=== PATIENT | female | born 1955 | race Caucasian/White ===

== ENCOUNTER 2023-08-30 14:52 | Outpatient (OUT) | payer MEDICARE, OTHER, SELFPAY ==
[2023-08-30 16:21] LABS: Lactate Dehydrogenase 221 U/L (81-234)
[2023-08-31 04:07] LABS: AFP, Serum, Tumor Marker 2.1 ng/mL (0.0-9.2); CEA 0.7 ng/mL (0.0-4.7); Cancer Antigen (CA) 125 11.3 U/mL (0.0-38.1); HCG Tumor Marker 2 mIU/mL (.)
== END 2023-08-30 14:53 | disposition home or self-care (01) ==
LOC: LAB 14:57
PROVIDERS: PCP Internal Medicine; Visit Provider Obstetrics & Gynecology
DX: N83.299 Other ovarian cyst, unspecified side (principal)
CPT/HCPCS: 36415; 82105; 82378; 83615; 84702; 86304

== ENCOUNTER 2023-10-07 13:21 | Outpatient (OUT) | payer MEDICARE, OTHER, SELFPAY ==
--- NOTE | 2023-10-07 13:26 | ECG_ITS ---
[facility] Test Date: 2023-10-07 Pat Name: CIRO HAYNES Department: Room: - Gender: Female Customer Success Specialist: : [id number] Requested By: PANCHO ANGEL Order Number: [id number] Reading MD: INEZ RICE Measurements Intervals [place] Rate: 63 P: 68 HI: 176 QRS: 54 QRSD: 83 T: 62 QT: 384 QTc: 396 Interpretive Statements SINUS RHYTHM No previous ECG available for comparison Electronically Signed On 10-09-2023 7:34:05 EDT by INEZ RICE
== END 2023-10-07 13:22 | disposition home or self-care (01) ==
LOC: PST 13:23
PROVIDERS: PCP Internal Medicine; Visit Provider Obstetrics & Gynecology
DX: Z01.810 Encounter for preprocedural cardiovascular examination (principal); N83.299 Other ovarian cyst, unspecified side; R10.2 Pelvic and perineal pain
CPT/HCPCS: 93005

== ENCOUNTER 2023-10-21 07:20 | Day surgery (SDC) | payer MEDICARE, OTHER, SELFPAY ==
[2023-10-07 13:57] VITALS: BP 140/87; PULSE 83; TEMP 36.3; O2SAT 95; BMI 24.8
[2023-10-21] VITALS (11 sets, daily range): BP systolic 112–163; BP diastolic 58–102; PULSE 62–87; TEMP 35.9–36.1; O2SAT 94–98; BMI 24.6
--- OUTSIDE RECORDS SUMMARY | 2023-10-21 07:23 | XMS_ITS | CCD ---
Author Organization [facility] Care Team Providers Care Company Pilot Name Role Phone Pancho Angel DO Primary Care Provider PANCHO ANGEL Attending Unavailable PANCHO ANGEL Referring Unavailable PANCHO ANGEL Primary Care Unavailable PANCHO ANGEL Attending Unavailable PANCHO ANGEL Referring Unavailable PANCHO ANGEL Primary Care Unavailable PANCHO ANGEL Referring Unavailable PANCHO ANGEL Primary Care Unavailable BERTIN HALL Attending Unavailable FLORBERTIN Rodriguez Referring Unavailable FLORBERTIN Rodriguez Referring Unavailable FERNANDO HODGES Attending Unavailable FERNANDO HODGES Attending Unavailable Allergies Allergy Classification Reported Allergen(s) Allergy Type Date of Onset Reaction(s) Facility (6 sources) Ampicillin; Translations: [AMPICILLIN] Drug Allergy 9 [facility] (6 sources) Azithromycin; Translations: [AZITHROMYCIN] Drug Allergy 9 Diarrhea, GI Disturbance, Nausea And Vomiting [facility] Work Phone: (6 sources) Sulfamethoxazole / Trimethoprim; Translations: [SULFAMETHOXAZOLE-TR IMETHOPRIM] Drug Allergy 9 [facility] Medications Current Medications Medication Drug Class(es) Dates Sig (Normalized) Sig (Original) alendronic acid 70 mg oral tablet (2 sources) Bisphosphonate Start: 09-08-2023 take 1 tablet by mouth in the morning alendronate (FOSAMAX) 70 mg tablet Indications: Age-related osteoporosis without current pathological fracture Take 1 tablet (70 mg total) by mouth every 7 days. In a.m. with water on empty stomach, nothing else by mouth and remain upright for 30min 12 tablet 3 09/08/2023 Active celecoxib 200 mg oral capsule (5 sources) Nonsteroidal Anti-inflammatory Drug Start: 09-13-2023 take 1 capsule by mouth once daily in the morning celecoxib (CeleBREX) 200 mg capsule Indications: Trochanteric bursitis of left hip take 1 capsule by mouth every morning 30 capsule 2 09/13/2023 Active Start: 06-13-2023 End: 09-13-2023 take 1 capsule by mouth once daily in the morning celecoxib (CeleBREX) 200 mg capsule Indications: Trochanteric bursitis of left hip take 1 capsule by mouth every morning 30 capsule 2 06/13/2023 09/13/2023 Discontinued fluticasone propionate 0.05 mg/actuat metered dose nasal spray (4 sources) Corticosteroid Start: 04-12-2023 take 1 spray(s) nasal route in the morning fluticasone propionate (FLONASE) 50 mcg/actuation nasal spray Indications: Seasonal allergic rhinitis due to pollen Administer 1 spray into each nostril in the morning. 16 g 2 04/12/2023 Active pantoprazole 20 mg delayed release oral tablet (5 sources) Proton Pump Inhibitor Start: 02-03-2023 End: 07-23-2023 take 1 tablet by mouth once daily in the morning pantoprazole (PROTONIX) 20 mg EC tablet Indications: Gastroesophageal reflux disease, unspecified whether esophagitis present take 1 tablet by mouth every morning 90 tablet 1 07/23/2023 Active Problems Active Problems Problem Classification Problem Date Documented Date Episodic/Chronic Esophageal disorders (1 source) Gastroesophageal reflux disease; Translations: [Gastro-esophageal reflux disease without esophagitis] 07-23-2023 Chronic Immunizations and screening for infectious disease (1 source) Viral screening status; Translations: [Encounter for screening for other viral diseases] 08-09-2023 Episodic Osteoarthritis (8 sources) Degenerative joint disease involving multiple joints; Translations: [Polyosteoarthritis, unspecified] Onset: 06-14-2017 06-14-2017 Chronic Osteoporosis (2 sources) Senile osteoporosis; Translations: [Age-related osteoporosis without current pathological fracture] Onset: 09-08-2023 09-08-2023 Chronic Other connective tissue disease (1 source) Trochanteric bursitis of left hip; Translations: [Trochanteric bursitis, left hip] 09-13-2023 Episodic Other screening for suspected conditions (not mental disorders or infectious disease) (2 sources) Patient encounter status; Translations: [Encounter for screening for osteoporosis] Onset: 09-01-2023 08-09-2023 Episodic Residual codes; unclassified (1 source) Postmenopausal state; Translations: [Asymptomatic menopausal state] 08-09-2023 Episodic Residual codes; unclassified (1 source) Asymptomatic menopausal state; Translations: [Asymptomatic menopausal state] Onset: 09-01-2023 Episodic Thyroid disorders (4 sources) Multinodular goiter; Translations: [Nontoxic multinodular goiter] Onset: 06-14-2017 06-14-2017 Chronic Unclassified (1 source) discuss results and medications Onset: 09-08-2023 Past or Other Problems Problem Classification Problem Date Documented Da te Episodic/Chronic Mood disorders (4 sources) Mood disorders Onset: 04-12-2023 Resolved: 09-08-2023 04-12-2023 Results Test Name Value Interpretation Reference Range Facility DEXA SCAN CENTRAL SKELETALon 09-01-2023 DEXA SCAN CENTRAL SKELETAL DEXA SCAN CENTRAL SKELETAL CLINICAL INFORMATION: Postmenopausal status; Screening for osteoporosis. , Post menopausal, TECHNIQUE: Dual X-ray Absorptiometry (DXA) was performed. COMPARISON: No relevant prior studies available. FINDINGS: LUMBAR SPINE (L1-L4): BMD is 0.943 gm/cm2. T-score is -2.0. LEFT FEMORAL NECK: BMD is 0.666 gm/cm2. T-score is -2.7. LEFT TOTAL FEMUR: BMD is 0.719 gm/cm2. T-score is -2.3. RIGHT FEMORAL NECK: BMD is 0.657 gm/cm2. T-score is -2.7. RIGHT TOTAL FEMUR: BMD is 0.724 gm/cm2. T-score is -2.2. The estimated 10-year probability for a major osteoporotic fracture (utilizing FRAX) is 32.9% and for a hip fracture is 11%. IMPRESSION: The exam is considered to be osteoporotic by the National Osteoporosis Foundation guidelines. Recommend consideration for initiation of therapy. WHO CLASSIFICATION: Normal: T-score -1.0 or above Osteopenia: T-score -1.1 to < 2.5 Osteoporosis: T-score -2.5 or lower Secondary causes of bone loss should be evaluated if clinically indicated since the etiology of low BMD cannot be determined by BMD measurement alone. The current National Osteoporosis Foundation guide recommends treating patients with FRAX ten year risk scores of greater than or equal to 3% for hip fracture or greater than or equal to 20% for major osteoporotic fracture, to reduce their fracture risk. Finalized by Jonny Espinal MD on 09/01/2023 7:[address] [facility] US PELVIS TRANSVAGINALon US PELVIS TRANSVAGINAL US PELVIS TRANSVAGINAL : 07/15/2023 2:41 PM CLINICAL HISTORY: pelvic pain. COMPARISON June 12, 2021. TECHNIQUE: ROUTINE FINDINGS: The uterus is surgically absent. A cyst is seen in the right ovary that measures 4.9 x 4.7 x 4 cm. No adnexal mass or fluid collection seen. The left ovary is not visualized. This cyst previously measured 4.8 x 4.5 x 5.1 cm. IMPRESSION: A CYST IS AGAIN SEEN IN THE RIGHT. It appears similar to previous study. ELECTRONICALLY SIGNED BY: Clare López DO Normal Not Available BI MAMMOGRAM SCREENING TOMOS YCASAIS BILATERALon 07-12-2023 BI MAMMOGRAM SCREENING TOMOSYNTHESIS BILATERAL This is a summary report. The complete report is available in the patient's medical record. If you cannot access the medical record, please contact the sending organization for a detailed fax or copy. EXAMINATION: BI MAMMOGRAM SCREENING TOMOSYNTHESIS BILATERAL CLINICAL HISTORY: breast cancer screen COMPARISON: June 01, 2022. RESULT: Digital mammography and 3D tomosynthesis of bilateral breasts was performed. There are scattered areas of fibroglandular density. Overall appearance is stable. Typically benign calcifications. There is no suspicious mass, asymmetry, architectural distortion, or calcification. IMPRESSION: BIRADS 2 - Benign Follow-up: Routine Screening Mamm . Board Certified Radiologists. Accredited by the ACR and FDA. MAMMOGRAPHY IS VERY IMPORTANT TO YOUR HEALTH. THE [place] [employer] SOCIET[employer] GUIDELINES RECOMMEND THAT WOMEN 40 YEARS OF AGE AND OLDER SHOULD HAVE A MAMMOGRAM EVERY YEAR. A REMINDER LETTER WILL BE SENT AT THE APPROPRIATE TIME. THIS FACILITY UTILIZES A REMINDER SYSTEM TO ENSURE ALL PATIENTS RECEIVE REMINDER NOTIFICATIONS AT THE APPROPRIATE TIME BASED ON THE RECOMMENDATIONS OF THIS EXAM. THIS INCLUDES REMINDERS FOR ROUTINE SCREENING MAMMOGRAMS, DIAGNOSTIC MAMMOGRAMS IN WHICH THE PATIENT IS ASKED TO RETURN FOR ADDITIONAL VIEWS, OR OTHER BREAST IMAGING INTERVENTIONS WHEN APPROPRIATE. THE PATIENT WILL BE PLACED IN THE APPROPRIATE REMINDER SYSTEM INCLUDING A REMINDER AT THE APPROPRIATE TIME FOR ANY PENDING ADDITIONAL VIEWS. TRANSCRIBED BY: ELECTRONICALLY SIGNED BY: Paras Gomez MD Normal Not Available US Pelvic, Transvaginalon US Pelvic, Transvaginal FINDINGS: Comparison made with prior exam of November 23, 2019 Uterus surgically absent Right Ovary4.8 x 4.5 x 5.1 cm Left Ovarynot seen Normal vaginal cuff. No pelvic fluid. Slight increase in size right ovarian cyst, 4.3 x 3.9 x 4.1 cm, prior measurement 3.8 x 3.2 cm. IMPRESSION: Benign appearing right ovarian cyst, slight increase in size Report reported and signed by Paras Gomez on 06/12/2021 1228 Normal [facility] Director Speech And Hearing BASIC METABOLIC PANELon 11-0 BUN/CREATININE RATIO NOT APPLICABLE Normal - [facility] Comment on above: Order Comment: FASTI NG:UNKNOWN FASTING: UNKNOWN Performed By: #### 6 399, [id number] #### [facility] [address], [address] [place] [address] Bed Bug Exterminator: Fish Rogers MD Calcium [Mass/Vol] 9.1 mg/dL Normal 8.6-10.4 [facility] Comment on above: Order Comment: FASTI NG:UNKNOWN FASTING: UNKNOWN Performed By: #### 6 399, [id number] #### [facility] [address], [address] [place] [address] Bed Bug Exterminator: Fish Rogers MD Chloride [Moles/Vol] 107 mmol/L Normal 98-110 [facility] Comment on above: Order Comment: FASTI NG:UNKNOWN FASTING: UNKNOWN Performed By: #### 6 399, [id number] #### [facility] [address], [address] [place] [address] Bed Bug Exterminator: Fish Rogers MD CO2 [Moles/Vol] 30 mmol/L Normal 20-32 [facility] Comment on above: Order Comment: FASTI NG:UNKNOWN FASTING: UNKNOWN Performed By: #### 6 399, [id number] #### [facility] [address], [address] [place] [address] Bed Bug Exterminator: Fish Rogers MD Creatinine [Mass/Vol] 0.66 mg/dL Normal 0.50-0.99 [facility] Comment on above: Order Comment: FASTI NG:UNKNOWN FASTING: UNKNOWN Result Comment: For patients >49 years of age, the reference limit for Creatinine is approximately 13% higher for people identified as -[place]. Performed By: #### 6 399, [id number] #### [facility] [address], [address] [place] [address] Bed Bug Exterminator: Fish Rogers MD eGFR NON-AFR. [place] 92 mL/min/1.73m2 Normal > OR = 60 [facility] Comment on above: Order Comment: FASTI NG:UNKNOWN FASTING: UNKNOWN Performed By: #### 6 399, [id number] #### [facility] [address], [address] [place] [address] Bed Bug Exterminator: Fish Rogers MD GFR/1.73 sq M.predicted among blacks MDRD (S/P/Bld) [Vol rate/Area] 107 mL/min/{1.73_m2} Normal > OR = 60 [facility] Comment on above: Order Comment: FASTI NG:UNKNOWN FASTING: UNKNOWN Performed By: #### 6 399, [id number] #### [facility] [address], [address] [place] [address] Bed Bug Exterminator: Fish Rogers MD Glucose [Mass/Vol] 97 mg/dL Normal 65-99 [facility] Comment on above: Order Comment: FASTI NG:UNKNOWN FASTING: UNKNOWN Result Comment: Fasting reference interval Performed By: #### 6 399, [id number] #### [facility] [address], [address] [place] [address] Bed Bug Exterminator: Fish Rogers MD Potassium [Moles/Vol] 4.6 mmol/L Normal 3.5-5.3 [facility] Comment on above: Order Comment: FASTI NG:UNKNOWN FASTING: UNKNOWN Performed By: #### 6 399, [id number] #### [facility] [address], [address] [place] [address] Bed Bug Exterminator: Fish Rogers MD Sodium [Moles/Vol] 141 mmol/L Normal 135-146 [facility] Comment on above: Order Comment: FASTI NG:UNKNOWN FASTING: UNKNOWN Performed By: #### 6 399, [id number] #### [facility] [place] [address] Bed Bug Exterminator: Fish Rogers MD Urea nitrogen [Mass/Vol] 17 mg/dL Normal 7-25 [facility] Comment on above: Order Comment: FASTI NG:UNKNOWN FASTING: UNKNOWN Performed By: #### 6 399, [id number] #### [facility] [place] [address] Bed Bug Exterminator: Fish Rogers MD CBC (INCLUDES DIFF/PLT)on Basophils (Bld) [#/Vol] 0.041 10*3/uL Normal 0-200 [facility] Comment on above: Performed By: #### 6 399, 27353 #### [facility] [place] [address] Bed Bug Exterminator: Fish Rogers MD Basophils/100 WBC (Bld) 0.8 % Normal [facility] Comment on above: Performed By: #### 6 399, 26637 #### [facility] [place] [address] Bed Bug Exterminator: Fish Rogers MD Eosinophils (Bld) [#/Vol] 0.102 10*3/uL Normal 15-500 [facility] Comment on above: Performed By: #### 6 399, 57492 #### [facility] [place] [address] Bed Bug Exterminator: Fish Rogers MD Eosinophils/100 WBC (Bld) 2.0 % Normal [facility] Comment on above: Performed By: #### 6 399, [id number] #### [facility] [place] [address] Bed Bug Exterminator: Fish Rogers MD Erythrocyte distribution width (RBC) [Ratio] 12.9 % Normal 11.0-15.0 [facility] Comment on above: Performed By: #### 6 399, [id number] #### [facility] [address], [address] [place] [address] Bed Bug Exterminator: Fish Rogers MD Hematocrit (Bld) [Volume fraction] 40.1 % Normal 35.0-45.0 [facility] Comment on above: Performed By: #### 6 399, [id number] #### [facility] of [address], [address] [place] [address] Bed Bug Exterminator: Fish Rogers MD Hemoglobin (Bld) [Mass/Vol] 13.7 g/dL Normal 11.7-15.5 [facility] Comment on above: Performed By: #### 6 399, 44626 #### [facility] of [place] [address] Bed Bug Exterminator: Fish Rogers MD Lymphocytes (Bld) [#/Vol] 1.607 10*3/uL Normal 850-3900 [facility] Comment on above: Performed By: #### 6 399, 78054 #### [facility] of [address], [address] [place] [address] Bed Bug Exterminator: Fish Rogers MD Lymphocytes/100 WBC (Bld) 31.5 % Normal [facility] Comment on above: Performed By: #### 6 399, 79418 #### [facility] of [place] [address] Bed Bug Exterminator: Fish Rogers MD MCH (RBC) [Entitic mass] 30.3 pg Normal 27.0-33.0 [facility] Comment on above: Performed By: #### 6 399, 21631 #### [facility] of [place] [address] Bed Bug Exterminator: Fish Rogers MD MCHC (RBC) [Mass/Vol] 34.2 g/dL Normal 32.0-36.0 [facility] Comment on above: Performed By: #### 6 399, 47207 #### [facility] of [place] [address] Bed Bug Exterminator: Fish Rogers MD MCV (RBC) [Entitic vol] 88.7 fL Normal 80.0-100.0 [facility] Comment on above: Performed By: #### 6 399, 61723 #### [facility] [place] [address] Bed Bug Exterminator: Fish Rogers MD Monocytes (Bld) [#/Vol] 0.423 10*3/uL Normal 200-950 [facility] Comment on above: Performed By: #### 6 399, 99887 #### [facility] of [place] [address] Bed Bug Exterminator: Fish Rogers MD Monocytes/100 WBC (Bld) 8.3 % Normal [facility] Comment on above: Performed By: #### 6 399, 64144 #### [facility] [place] [address] Bed Bug Exterminator: Fish Rogers MD Neutrophils (Bld) [#/Vol] 2.927 10*3/uL Normal 9619-0157 [facility] Comment on above: Performed By: #### 6 399, 72309 #### [facility] [place] [address] Bed Bug Exterminator: Fish Rogers MD Neutrophils/100 WBC (Bld) 57.4 % Normal [facility] Comment on above: Performed By: #### 6 399, 46472 #### [facility] [place] [address] Bed Bug Exterminator: Fish Rogers MD Platelet mean volume (Bld) [Entitic vol] 10.4 fL Normal 7.5-12.5 [facility] Comment on above: Performed By: #### 6 399, 99999 #### [facility] of [place] [address] Bed Bug Exterminator: Fish Rogers MD Platelets (Bld) [#/Vol] 216 10*3/uL Normal 140-400 [facility] Comment on above: Performed By: #### 6 399, 05123 #### [facility] of [address], [address] [place] [address] Bed Bug Exterminator: Fish Rogers MD RBC (Bld) [#/Vol] 4.52 10*6/uL Normal 3.80-5.10 [facility] Comment on above: Performed By: #### 6 399, 17635 #### [facility] of [address], [address] [place] [address] Bed Bug Exterminator: Fish Rogers MD WBC (Bld) [#/Vol] 5.1 10*3/uL Normal 3.8-10.8 [facility] Comment on above: Performed By: #### 6 399, 12828 #### [facility] of [address], [address] [place] [address] Bed Bug Exterminator: Fish Rogers MD Vital Signs Date Time Vital Sign Value Performing Clinician Ayala willis 09-08-2023 12:19-0500 Diastolic blood pressure 82 mm[Hg] Pancho Angel DO Work Phone: [facility] 09-08-2023 12:19-0500 Systolic blood pressure 118 mm[Hg] Pancho Angel DO Work Phone: [facility] [employer] 09-08-2023 11:13-0500 Body height 157.5 cm Pancho Angel DO Work Phone: [facility] 09-08-2023 11:13-0500 Body mass index (BMI) [Ratio] 24.73 kg/m2 Pancho Angel DO Work Phone: [facility] 09-08-2023 11:13-0500 Body temperature 97.5 [degF] [facility]anch[facility] Angel DO [facility] 09-08-2023 11:13-0500 Body weight 61.33 kg Pancho Angel DO Work Phone: [facility] [employer] 09-08-2023 11:13-0500 Heart rate 57 /min Pancho Angel DO Work Phone: [facility] 09-08-2023 11:13-5315 SaO2% (BldA) [Mass fraction] 99 % Pancho Angel DO Work Phone: [facility] Encounters Encounter Date Encounter Type Care Provider Facility Start: 09-21-2023 End: 09-21-2023 ambulatory FERNANDO TRACIE Not Available Start: 09-13-2023 Refill Pancho Roman O Work Phone: [facility] Comment on above: Trochanteric bursiti s of left hip Start: 09-08-2023 End: 09-08-[address] [facility] Start: 09-08-2023 End: 09-08-2023 Office outpatient visit 25 minutes Pancho Angel DO Work Phone: [facility] Comment on above: Age-related osteopor osis without current pathological fracture (Primary Dx) Start: 09-01-2023 End: 09-02-2023 ambulatory [facility] Start: 08-30-2023 End: 08-30-2023 ambulatory FERNANDO TRACIE Not Available Start: 08-09-2023 End: 08-09-[address] [facility] Start: 08-09-2023 End: 08-09-2023 Patient encounter procedure Pancho Angel DO Work Phone: [facility] Comment on above: Encounter for subseq uent annual wellness visit (AWV) in Medicare patient (Primary Dx); Need for hepatitis C screening test; Postmenopausal status; Screening for osteoporosis Start: 07-23-2023 Refill Pancho Roman O Work Phone: [facility] Comment on above: Gastroesophageal ref lux disease, unspecified whether esophagitis present Start: 07-15-2023 End: 07-16-2023 ambulatory BERTIN L FLORO Not Available Start: 07-12-2023 End: 07-13-2023 ambulatory BERTIN L FLORO Not Available Procedures Date Procedure Procedure Detail Performing Clinician Start: 09-08-2023 Adult depression scr eening assessment Pancho Angel DO Work Phone: Start: 08-09-2023 Adult depression scr eening assessment Pancho Angel DO Work Phone: Start: 04-12-2023 Adult depression scr eening assessment Pancho Angel DO Work Phone: Start: 01-11-2019 Colonoscopy Pancho Angel DO Work Phone: Plan of Treatment Date Care Activity Detail Author Start: 01-11-2029 Screening for malign ant neoplasm of colon Colonoscopy [facility] Start: 09-07-2024 Adult BMI Screening Adult BMI Screen ing [facility] Start: 09-07-2024 Depression Screening Depression Scre ening [facility] Start: 09-07-2024 Fall Risk Screening Fall Risk Screen ing [facility] Start: 09-07-2024 Tobacco Screening Tobacco Screening [facility] Start: 08-14-2024 End: 08-14-2024 Patient encounter procedure 08/14/2024 12:30 PM EST Office Visit [facility] [address] [place] [address] [facility] Start: 08-09-2024 Depression Screening Depression Scre ening [facility] Start: 08-09-2024 Fall Risk Screening Fall Risk Screen ing [facility] Start: 08-09-2024 Medicare Annual Well ness Visit Medicare Annual Wellness Visit [facility] Start: 04-12-2024 Adult BMI Screening Adult BMI Screen ing [facility] Start: 04-12-2024 Depression Screening Depression Scre ening [facility] Start: 04-12-2024 Fall Risk Screening Fall Risk Screen ing [facility] Start: 04-12-2024 Tobacco Screening Tobacco Screening [facility] Start: 08-17-2023 End: 08-17-2023 Patient encounter procedure 08/17/2023 2:45 PM EST Appointment [facility] - Mammogram DEXA [address] [place] [id number] Pancho Angel, DO [address] [place] [address] [facility] - Mammogram DEXA Start: 08-09-2023 End: 08-09-2024 DXA Skeletal system Views for bone density Dexa scan central skeletal Imaging Routine Postmenopausal status Screening for osteoporosis Expected: 08/09/2023, Expires: 08/09/2024 [facility] Comment on above: Expected: 08/09/2023 , Expires: 08/09/2024 Start: 03-04-2023 COVID-19 Vaccine () COVID-19 Vaccine () [facility] Start: 03-04-2023 Influenza vaccination Influenza Vacc ine [facility] Start: 2005 Administration of varicella zoster vaccine Zoster (Shingles) Vaccine (1 of 2) [facility] Start: 1974 DTaP,Tdap and Td Vaccines (1 - Tdap) DTaP,Tdap and Td Vaccines (1 - Tdap) [facility] Start: 1955 Medicare Annual Well ness Visit Medicare Annual Wellness Visit [facility] End: 08-09-2024 Hepatitis C(HCV) Ab w/ Reflex to PCR Hepatitis C(HCV) Ab w/ Reflex to PCR Lab Routine Need for hepatitis C screening test 1 Occurrences starting 08/09/2023 until 08/09/2024 [facility] Work Phone: Comment on above: 1 Occurrences starti ng 08/09/2023 until 08/09/2024 Immunizations Immunization Date Immunization Notes Care Provider Fa cility 03-25-2022 Covid-19, Mrna, Lnp- s, Bivalent, Pf, 50mcg/0.5ml or 25mcg/0.25ml Pancho Angel DO Work Phone: [facility] 04-25-2019 influenza, injectabl e, quadrivalent, preservative free Pancho Angel DO Work Phone: [facility] 04-25-2019 influenza virus vaccine, unspecified formulation Pancho Angel DO Work Phone: [employer] 04-08-2019 influenza, injectabl e, quadrivalent, preservative free Pancho Angel DO Work Phone: [employer] Payers Date Payer Category Payer [employer] [id number] 2022 [employer] LIFE [id number] 2022-Present [phone] [address] [place] [address] [id number] 2022 [employer] ( [employer] others) [id number] 2020 Medicare MEDICARE MEDICAR E PART A & B [id number] 2020-Present [phone] [address] [place] [address] [id number] 2020 Medicare [id number] 1955 Unknown [id number] 1955 Unknown [id number] 1955 Unknown [id number] 1955 Unknown [id number] 1955 Unknown [id number] 1955 Unknown [id number] 1955 Unknown [id number] 1955 Unknown [id number] Social History Date Type Detail Facility Start: [facility] Start: 01-07-2023 Tobacco use and exposure Smoke less tobacco non-user [facility] Start: 04-12-2023 End: 09-08-2023 Alcohol intake Current drinker of alcohol (finding) [facility] Start: 05-23-2020 End: 08-09-2023 History of Social function [facility] Start: 05-23-2020 End: 08-09-2023 Alcohol Use Disorder Identification Test - Consumption [AUDIT-C] [facility] Frequency of Alcohol Consumption Monthly or less [facility] Start: 06-14-2017 Alcohol Comment rarely [facility] Start: 1955 Sex Assigned At Not on file P [facility] Has the [employer], [employer], [employer], or water [employer] threatened to shut off services in your home in past 12Mo No [facility] Are you now , , , , never or living with a partner? [facility] Do you feel stress - tense, restless, nervous, or anxious, or unable to sleep at night because your mind is troubled all the time - these days [OSQ] Rather much [facility] History of Present illness Narrative 09-08-2023 Pancho Angel, DO - 09/08/2023 11:20 AM EST Note Date & Type Note Facility 09-08-2023 History of Presen t illness Narrative IM PROGRESS NOTE Patient - Gris Khalil Age - 68 y.o. - 1955 ASSESSMENT & PLAN 1. Age-related osteoporosis without current pathological fracture -results of the recent DEXA scan were reviewed with the patient. Has osteoporosis. -we discussed options for treatment including alendronate, Prolia, and zoledronic acid. We discussed the risks/side effects/benefits of each. -she would prefer to start with alendronate, and if not able to tolerate would switch to a different treatment. - alendronate (FOSAMAX) 70 mg tablet; Take 1 tablet (70 mg total) by mouth every 7 days. In a.m. with water on empty stomach, nothing else by mouth and remain upright for 30min Dispense: 12 tablet; Refill: 3 Subjective 68-year-old female presents to review results of recent DEXA scan, and discuss potential treatments. At the current time she has no specific complaints. No previous history of osteoporosis, but does have known osteopenia. No back pain or hip pain. Does do routine stretching and strengthening exercises for her chronic hip bursitis. - a recent DEXA scan was done, and shows osteoporosis in both hips, with osteopenia in the lumbar spine. However, the FRAX score was > 20% in the back, and > 4% in the hips. She has never had any broken bones. She is unaware of anyone else in her family with osteoporosis. A review of systems was negative except for the following: Gastrointestinal: GERD Musculoskeletal: joint stiffness and hip bursitis discomfort. Exam BP 118/82 (BP Site: Left Arm, BP Postition: Sitting) Pulse 57 Temp 36.4 C (97.5 F) (Oral) Ht 157.5 cm (5' 2 ) Wt 61.3 kg (135 lb 3.2 oz) SpO2 99% BMI 24.73 kg/m Physical Exam Vitals reviewed. Constitutional: General: She is not in acute distress. Appearance: She is well-developed and normal weight. She is not toxic-appearing. HENT: Head: Normocephalic. Right Ear: External ear normal. Left Ear: External ear normal. Mouth/Throat: Mouth: Mucous membranes are moist. Eyes: General: No scleral icterus. Cardiovascular: Rate and Rhythm: Normal rate and regular rhythm. Pulses: Normal pulses. Heart sounds: No murmur heard. No gallop. Pulmonary: Effort: Pulmonary effort is normal. Breath sounds: No wheezing or rales. Abdominal: Palpations: Abdomen is soft. Musculoskeletal: Cervical back: No tenderness. Right lower leg: No edema. Left lower leg: No edema. Lymphadenopathy: Cervical: No cervical adenopathy. Skin: General: Skin is warm and dry. Coloration: Skin is not jaundiced. Findings: No bruising. Neurological: Mental Status: She is alert and oriented to person, place, and time. Motor: No weakness. Coordination: Coordination normal. Deep Tendon Reflexes: Reflexes are normal and symmetric. Psychiatric: Mood and Affect: Mood normal. Behavior: Behavior normal. Meds Current Outpatient Medications: celecoxib (CeleBREX) 200 mg capsule, take 1 capsule by mouth every morning, Disp: 30 capsule, Rfl: 2 fluticasone propionate (FLONASE) 50 mcg/actuation nasal spray, Administer 1 spray into each nostril in the morning., Disp: 16 g, Rfl: 2 pantoprazole (PROTONIX) 20 mg EC tablet, take 1 tablet by mouth every morning, Disp: 90 tablet, Rfl: 1 alendronate (FOSAMAX) 70 mg tablet, Take 1 tablet (70 mg total) by mouth every 7 days. In a.m. with water on empty stomach, nothing else by mouth and remain upright for 30min, Disp: 12 tablet, Rfl: 3 Lab Results No visits with results within 1 Month(s) from this visit. Latest known visit with results is: Hospital Outpatient Visit on 01/25/2022 Component Date Value Ref Range Status T3, free 01/25/2022 3.37 2.50 - 3.90 pg/mL Final TSH 01/25/2022 2.17 0.49 - 4.67 uIU/mL Final T4, free 01/25/2022 0.88 0.61 - 1.60 ng/dL Final Other Testing No results found. Pancho Angel DO., [facility] Office: [phone] documented in this encounter [facility] History of Present illness Narrative 08-09-2023 Pancho Angel DO - 08/09/2023 3:20 PM EST Note Date & Type Note Facility 08-09-2023 History of Presen t illness Narrative Subjective SUBJECTIVE: Patient ID: Gris Khalil is a 68 y.o. female who presents for a Medicare Annual Wellness exam. HPI The following portions of the patient's history were reviewed and updated as appropriate: allergies, current medications, past family history, past medical history, past social history, past surgical history and problem list. AWV FLOWSHEET : Lifestyle Assessment Do you smoke or use smokeless tobacco?: No If you smoke or use smokeless tobacco, are you ready to quit?: NA Are you exposed to secondhand smoke?: No On average, how many drinks of alcohol do you consume in a week?: None Do you exercise for 30 or more minutes on average at least 3 days a week?: Often Do you have any tooth, denture, or oral problems?: No Do you snore or has anyone told you that you snore?: (!) Yes Do you try to eat a balanced diet?: Yes Do you experience leakage of urine, also known as urinary incontinence?: Never Do you have difficulty performing any of these activities? (check all that apply): None Do you have difficulty performing any of these activities? (check all that apply): None Fall Risk Fall Risk Assessment Completed?: Yes Have you fallen in the past year?: No Are you worried about falling?: No Do you feel unsteady when standing or walking?: No Risk Stratification: Low Risk Depression Screening Little interest or pleasure in doing things: Not at all Feeling down, depressed, or hopeless: Not at all Trouble falling or staying asleep, or sleeping too much: Not at all Feeling tired or having little energy: Not at all Poor appetite or overeating: Not at all Feeling bad about yourself - or that you are a failure or have let yourself or your family down: Not at all Trouble concentrating on things, such as reading the newspaper or watching television: Not at all Moving or speaking so slowly that other people could have noticed. Or the opposite - being so fidgety or restless that you have been moving around a lot more than usual: Not at all Thoughts that you would be better off , or of hurting yourself in some way: Not at all PEG Scale Safety Assessment Do you have throw rugs on the floor?: No Do you feel safe at your home?: Yes Do you feel unsteady when walking?: No Are you having difficulty with driving?: No Do you have trouble seeing?: No What assistive device do you use? (check all that apply): None Hearing Assessment Do you strain or struggle to hear/understand conversations?: No Do you have trouble hearing the television or radio when others do not?: No Does your family ever voice concerns about your hearing?: No Do you wear hearing aid/s?: No Personal Health During the past 4 weeks, how would you rate your overall health?: Good Do you understand how to take all of your medications?: Yes How confident are you that you can control and manage most of your health problems?: Very confident In the past 12 months, how many times have you been hospitalized?: None End of Life Planning Do you have a living will?: Yes Do you have a durable power of lead burner helper?: Yes Cognitive Screening Do you have trouble remembering or recalling facts or events?: No Do family members or caregivers report that you have difficulty remembering things?: No 6-ClT: Normal 0 REVIEW OF SYSTEMS: Review of Systems Objective PHYSICAL EXAMINATION: There were no vitals filed for this visit. Physical Exam Assessment/Plan ASSESSMENT/PLAN Gris was seen today for medicare annual wellness. Diagnoses and all orders for this visit: Encounter for subsequent annual wellness visit (AWV) in Medicare patient Need for hepatitis C screening test - Hepatitis C(HCV) Ab w/ Reflex to PCR; Future Postmenopausal status - Dexa scan central skeletal; Future Screening for osteoporosis - Dexa scan central skeletal; Future Return in about 1 year (around 08/09/2024). [facility] Note Date & Type Note Facility Evaluation note Diagnosis Gastroesophageal reflux disease, unspecified whether esophagitis present documented in this encounter [facility] Evaluation note Note Date & Type Note Facility Evaluation note Diagnosis Encounter for subsequent annual wellness visit (AWV) in Medicare patient- Primary Need for hepatitis C screening test Special screening examination for other specified viral diseases Postmenopausal status Asymptomatic postmenopausal status (age-related) (natural) Screening for osteoporosis Special screening for osteoporosis documented in this encounter [facility] Evaluation note Note Date & Type Note Facility Evaluation note Diagnosis Age-related osteoporosis without current pathological fracture- Primary documented in this encounter [facility] Evaluation note Note Date & Type Note Facility Evaluation note Diagnosis Trochanteric bursitis of left hip documented in this encounter [facility] Instructions Note Date & Type Note Facility Instructions Not on filedocumented in this en counter [facility] Instructions Note Date & Type Note Facility Instructions Not on filedocumented in this en counter [facility] Summary Purpose Family History No Family History Records FoundNo Family History Records FoundNo Family History Records FoundNo Family History Records FoundNo Family History Records Found Advance Directives No Advanced Directives Records FoundNo Advanced Directives Records FoundNo Advanced Directives Records FoundNo Advanced Directives Records FoundNo Advanced Directives Records Found Additional Source Comments INFORMATION SOURCE (unrecogn ized section and content) DATE CREATED AUTHOR 05/10/2021 [facility] DATE CREATED AUTHOR AUTHOR'S ORGANIZ ATION 06/13/2021 [facility] DATE CREATED AUTHOR AUTHOR'S ORGANIZ ATION 09/04/2023 [facility] DATE CREATED AUTHOR AUTHOR'S ORGANIZ ATION 09/09/2023 [facility] DATE CREATED AUTHOR AUTHOR'S ORGANIZ ATION 09/22/2023 [facility] Specialists EPIC Reason for Visit (unrecogniz ed section and content) Reason Comments Med Refill Reason Comments medicare annual wellness Reason Comments discuss results and medications Care Teams (unrecognized sec tion and content) Company Pilot Relationship Specialty Start Date End Date Pancho Angel DO [address] [place] [address] PCP - General Internal Medicine 06/04/21 Company Pilot Relationship Specialty Start Date End Date Pancho Angel DO [address] [place] [address] PCP - General Internal Medicine 06/04/21 Company Pilot Relationship Specialty Start Date End Date Pancho Angel DO [address] [place] [address] PCP - General Internal Medicine 06/04/21 Company Pilot Relationship Specialty Start Date End Date Pancho Angel DO [address] [place] [id number] PCP - General Internal Medicine 06/04/21 FOR RECORDS PERTAINING TO PATIENTS WHO ARE OR HAVE BEEN ENROLLED IN A CHEMICAL DEPENDENCY/SUBSTANCEABUSE PROGRAM, SOME INFORMATION MAY BE OMITTED. This clinical summary was aggregated from multiple sources. Caution should be exercised in using it in the provision of clinical care. This summary normalizes information from multiple sources, and as a consequence, information in this document may materially change the coding, format and clinical context of patient data. In addition, data may be omitted in some cases. CLINICAL DECISIONS SHOULD BE BASED ON THE PRIMARY CLINICAL RECORDS. [employer] provides no warranty or guarantee of the accuracy or completeness of information in this document.
[2023-10-21 07:54] LABS: Basophils Absolute Auto 0.1 10^3/uL (0.0-0.1); Basophils Percent Auto 0.9 % (0.2-2.0); Eosinophils Absolute Auto 0.1 10^3/uL (0.0-0.7); Eosinophils Percent Auto 2.3 % (0.9-7.0); Hematocrit 41.7 % (36.0-48.0); Hemoglobin 13.3 g/dL (12.0-16.0); Immature Granulocytes Abs Auto 0.01 10^3/uL (0.00-0.03); Immature Granulocytes Pct Auto 0.2 % (0.0-0.5); Lymphocytes Absolute Auto 1.5 10^3/uL (1.2-3.8); Lymphocytes Percent Auto 26.7 % (20.5-60.0); Mean Corpuscular HGB Conc 31.9 g/dL (29.9-35.2); Mean Corpuscular Hemoglobin 28.6 pg (26.7-34.0); Mean Corpuscular Volume 89.7 fL (81.0-99.0); Mean Platelet Volume 9.6 fL (9.5-13.5); Monocytes Absolute Auto 0.5 10^3/uL (0.3-0.8); Monocytes Percent Auto 9.5 % (1.7-12.0); Neutrophils Absolute Auto 3.4 10^3/uL (1.4-6.5); Neutrophils Percent Auto 60.4 % (43.0-75.0); Platelet Count 212 10^3/uL (150-450); Red Blood Count 4.65 10^6/uL (4.20-5.40); Red Cell Distribution Width 12.9 % (11.0-15.0); White Blood Count 5.6 10^3/uL (4.0-11.0)
[2023-10-21] MEDS: LACTATED RINGER'S SOLUTION 1,000 ML 50 ML IV (07:59)
--- NOTE | 2023-10-21 11:41 | PM.ONB ---
Brief Operative Note Date of procedure: 10/21/23 Pre-op diagnosis general: pelvic pain, rt ovarian cyst Post-op diagnosis: same as pre-op Procedure: NAME OF PROCEDURE: robotic assisted Laparoscopic bilateral salpingoopherectomy PROCEDURE: A wet sponge stick was placed into the patient's vagina. Attention was then turned to the patient's abdomen, where a scalpel was used to make a small infraumbilical incision. The S retractors were then used to dissect the underlying layers until the fascia could be seen. The fascia was then grasped with Guillermo clamps and tented up. A knife was then used to make a small incision to the fascia. The muscle was identified, at that time two sutures of #0 Vicryl on a GI needlewas then used and placed through the fascia. The peritoneum was then identified and entered bluntly. The 10-4 Olegario was then placed into the patient's abdomen. This was confirmed with direct visualization of the bowel, using the laparoscope. The patient's abdomen was then insufflated using approximately 4 liters of CO2 gas. Survey of the patient's abdomen demonstrated normal appearing lt ovary and tubes. large rt ovary cyst noted. A second and third lateral robotic ports, which was 8mm in size, was then placed laterally after incision was made in the skin under direct visualization. the robotic arms were engaged. The patient's tube and ovary on the patient's right side was identified. The tube and ovary was then tented up using a grasper. The ligasure was used to transect and coagulate the mesosalpingx and infundibular pelvic ligament the tube and ovary was amputated and removed in its entirety.? Excellent hemostasis was noted. ?This was performed on the contralateral side as well. The lateral ports were then moved under direct visualization with excellent hemostasis. The abdomen was deinsufflated. All instruments were removed from the patient's abdomen. The fascia was closed using the #0 Vicryl on GI needle. The skin was closed using 4-0 Vicryl subcuticularly. All instruments were removed from the patient's vagina as well. The patient was taken out of the dorsal lithotomy position and placed in the supine position and taken to recovery in stable condition. Sponge, lap and needle counts were correct x2. ??? Anesthesia: SRAVANI Surgeon: Marv Brown Trend Investigator: Malka Dunne Estimated blood loss (mL): 5 Pathology: other (bilateral tubes and ovary) Condition: stable Disposition: PACU Urinary Catheter Management Urinary Catheter Management Urethral: Cath placed during this visit: no
[2023-10-21] MEDS: LACTATED RINGER'S SOLUTION 1,000 ML 150 ML IV (12:47)
--- NOTE | 2023-10-21 13:19 | PC.NURSE ---
Denies urge to void
[2023-10-21] MEDS: PROMETHAZINE HCL 25 MG TABLET PO (13:46)
--- NOTE | 2023-10-21 13:53 | PC.NURSE ---
C/o nausea; no emesis; alcohol pad to nares without relief and medicated with Phenergan by mouth; denies urge to void
--- NOTE | 2023-10-21 13:57 | PC.NURSE ---
Ice bag to right cheek area
--- NOTE | 2023-10-21 14:30 | PC.NURSE ---
No further c/o nausea
--- NOTE | 2023-10-21 14:30 | PC.NURSE ---
States pain in mouth is jaw pain and states it seems to be better; ice bag to right cheek
--- NOTE | 2023-10-21 15:16 | PC.NURSE ---
Up to bathroom and voids clear yellow without difficulty; continues to have right jaw pain; Dr. Perez, anesthesia speaks with pt.; no new orders received
== END 2023-10-21 15:10 | disposition home or self-care (01) ==
PROVIDERS: PCP Internal Medicine; Visit Provider Obstetrics & Gynecology
PROC: (CPT 58661; principal; 2023-10-21 08:55)
DX: R10.2 Pelvic and perineal pain (principal); N83.202 Unspecified ovarian cyst, left side; N83.201 Unspecified ovarian cyst, right side; E04.1 Nontoxic single thyroid nodule; M19.90 Unspecified osteoarthritis, unspecified site; Z90.710 Acquired absence of both cervix and uterus
CPT/HCPCS: 58661; 36415; 85025; 88305; 99999; J1094; J1170; J2704